=== PATIENT | male | born 1980 | race Caucasian/White ===

== ENCOUNTER 2018-06-01 04:00 | Emergency (ER) | payer OTHER ==
[2018-06-01 04:00] VITALS: BMI 28.5
[2018-06-01 06:05] LABS: BASO % 0.4 % (0.0-2.0); EOS # 0.1 K/uL (0.0-0.7); EOS % 1.3 % (0.0-4.0); HEMOGLOBIN 14.9 g/dL (12.0-18.0); LYMPH # 1.7 K/uL (1.0-4.3); LYMPH % 15.9 % (20.0-40.0); MEAN CELL VOLUME 88.7 fl (80.0-94.0); MEAN CORPUSCULAR HEMOGLOBIN 30.1 pg (27.0-31.0); MEAN CORPUSCULAR HGB CONC 33.9 g/dL (33.0-37.0); MEAN PLATELET VOLUME 9.6 fl (7.2-11.7); MONO # 0.7 K/uL (0.0-0.8); MONO % 6.3 % (0.0-10.0); NEUT % 76.1 % (50.0-75.0); RBC 4.97 Mil/uL (4.40-5.90); RED CELL DISTRIBUTION WIDTH 13.8 % (11.5-14.5); WHITE BLOOD COUNT 10.5 K/uL (4.8-10.8)
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
[2018-06-01 06:17] LABS: ALB/GLOB RATIO 1.2 (1.0-2.1); ALBUMIN 4.8 g/dL (3.5-5.0); ALT/SGPT 54 U/L (21-72); AST/SGOT 39 U/L (17-59); BLOOD UREA NITROGEN 14 mg/dl (9-20); CALCIUM 9.8 mg/dL (8.4-10.2); GFR NON-AFRICAN AMERICAN > 60
[2018-06-01 08:05] VITALS: RESP 18
[2018-06-01 08:43] VITALS: O2SAT 100
[2018-06-01 08:46] LABS: BARBITURATES, UR NEGATIVE (NEGATIVE); BENZODIAZEPINES, UR NEGATIVE (NEGATIVE); OPIATES, UR NEGATIVE (NEGATIVE); PHENCYCLIDINE, UR NEGATIVE (NEGATIVE)
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
--- NOTE | 2018-06-01 10:21 | ED PDOC ---
- Laboratory Results Result Diagrams: 06/01/18 05:44 06/01/18 05:44 - ECG O2 Sat by Pulse Oximetry: 100 Medical Decision Making Medical Decision Making: Discussed with [facility] Dr. SWATHI Lantigua. Pt can be followed as outpt. Can be seen Tuesday 06/06. Disposition - Clinical Impression Clinical Impression: Facial bones, closed fracture - POA Present On Arrival: None - Disposition Disposition: Routine/Home Disposition Time: 10:21 Condition: FAIR Additional Instructions: [place] [facility] [place] [facility] [place] Prescriptions: Amoxicillin/Potassium Clav [Augmentin 500 mg-125 mg] 1 tab PO TID #30 tab Naproxen [Naprosyn] 500 mg PO Q12H #20 tab Instructions: Skull and Facial Fractures Forms: [facility] (Equ[place]an)
[2018-06-01 10:52] VITALS: BP 130/80; PULSE 83; TEMP 98.5
== END 2018-06-01 10:42 | disposition home or self-care (01) ==
LOC: H.ER 04:00
DX: S02.92XA Unspecified fracture of facial bones, initial encounter for closed fracture (principal); Y04.0XXA Assault by unarmed brawl or fight, initial encounter; Y92.89 Other specified places as the place of occurrence of the external cause